=== PATIENT | female | born 1930 | race Caucasian/White ===

== ENCOUNTER 2017-01-09 14:55 | Inpatient (IN) | payer MEDICARE, BC ==
[2017-01-09] MEDS ORDERED: NS 0.9% 1000 ML* 1,000 ML IV ONE ×2 (15:04→15:38)
[2017-01-09] MEDS ORDERED: Ketorolac INJ* 30 MG/ML 1 ML VIAL IV ONE (15:38)
[2017-01-09] MEDS ORDERED: Ondansetron INJ* 2 MG/ML VIAL IV ONE (15:38)
[2017-01-09 15:44] LABS: Hematocrit 43 % (35-47); Hemoglobin 14.2 g/dl (12.0-16.0); Mean Corpuscular HGB Conc 33 g/dl (31-36); Mean Corpuscular Hemoglobin 32 pg (27-31); Mean Corpuscular Volume 97 fL (80-97); Mean Platelet Volume 9 um3 (7.4-10.4); Red Blood Count 4.43 10^6/ul (4.0-5.4); Red Cell Distribution Width 13 % (10.5-15); White Blood Count 12.4 10^3/ul (3.5-10.8)
[2017-01-09 16:07] LABS: Albumin 4.2 g/dL (3.2-5.2); BUN/Creatinine Ratio 21.6 (8-20); C Reactive Protein 7.4 mg/L (< 5.00); Calcium 9.5 mg/dL (8.6-10.3); EGFR African American 65.8 (>60); EGFR Non-African American 51.1 (>60); Globulin 3.1 g/dL (2-4); Total Bilirubin 0.6 mg/dL (0.2-1.0); Total Protein 7.3 g/dL (6.4-8.9)
[2017-01-09 16:11] LABS: Potassium 4.1 mmol/L (3.5-5.0)
[2017-01-09 17:17] LABS: Urine Bacteria Absent (Absent); Urine Bilirubin Negative (Negative); Urine Glucose Negative (Negative); Urine Nitrite Negative (Negative)
--- NOTE | 2017-01-09 17:30 | ED ---
Chato Osman Anna, scribed for Ariana Olivarez MD on 01/09/17 at 1552 . Abdominal Pain/Female - HPI Summary HPI Summary: Patient is a 86 y/o female coming to [facility] presenting with intermittent left abdominal pain radiating to her back that began two days ago at 1700. The pain is currently at severity 8/10. Denies emesis. The patient was seen by her PCP this afternoon, who took a CT and found the patient had a 7 mm kidney stone. She denies a history of kidney troubles. - History of Current Complaint Chief Complaint: EDFlankPain Stated Complaint: PAIN IN LT SIDE Time Seen by Provider: 01/09/17 15:18 Hx Obtained From: Patient Onset/Duration: Lasting Days, Still Present Timing: Days Severity Initially: Moderate Severity Currently: Moderate Pain Intensity: 8 Pain Scale Used: 0-10 Numeric Location: Discrete At: LLQ Radiates to: Flank Allergies/Adverse Reactions: Allergies Allergy/AdvReac Type Severity Reaction Status Date / Time Clopidogrel [From Plavix] Allergy Intermediate Hives Verified 01/09/17 14:57 Atorvastatin [From Lipitor] AdvReac Mild Abdominal Verified 01/09/17 14:57 Pain PMH/Surg Hx/FS Hx/Imm Hx Endocrine/Hematology History: Reports: Hx Diabetes - abnormal gfr Denies: Hx Systemic Lupus Erythematosus Cardiovascular History: Reports: Hx Angina, Hx Coronary Artery Disease, Hx Hypercholesterolemia, Hx Hypertension - ON MEDS Denies: Hx Congestive Heart Failure, Hx Pacemaker/ICD, Other Cardiovascular Problems/Disorders Respiratory History: Denies: Other Respiratory Problems/Disorders GI History: Denies: Other GI Disorders History: Denies: Hx Dialysis, Hx Renal Disease Musculoskeletal History: Reports: Other Musculoskeletal History - FRACTURE OF LEFT HUMERUS Denies: Hx Rheumatoid Arthritis Sensory History: Reports: Hx Contacts or Glasses Denies: Hx Hearing Aid Opthamlomology History: Reports: Hx Contacts or Glasses Psychiatric History: Reports: Hx Anxiety, Hx Depression - Cancer History Cancer Type, Location and Year: MELANOMA, METASTATIC Hx Chemotherapy: Yes - 10/02 Hx Radiation Therapy: No - Surgical History Surgery Procedure, Year, and Place[place] [facility] [place] [facility] [place] [facility] [place] and stent 08/2015. 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 Hx Anesthesia Reactions: No Infectious Disease History: No Infectious Disease History: Denies: Traveled Outside the [place] in Last 30 Days - Family History Known Family History: Negative: Cardiac Disease, Hypertension, Diabetes - Social History Occupation: Retired Lives: Alone Alcohol Use: Weekly Alcohol Amount: 1 glass of wine a week Hx Substance Use: No Substance Use Type: Reports: None Hx Tobacco Use: No Smoking Status (MU): Never Smoked Tobacco Review of Systems Positive: Abdominal Pain Positive: flank pain All Other Systems Reviewed And Are Negative: Yes Physical Exam Triage Information Reviewed: Yes Vital Signs On Initial Exam: Initial Vitals Temp Pulse Resp BP Pulse Ox 97.7 F 70 18 228/61 98 01/09/17 14:57 01/09/17 14:57 01/09/17 14:57 01/09/17 14:57 01/09/17 14:57 Vital Signs Reviewed: Yes Appearance: Positive: Well-Appearing, No Pain Distress Skin: Positive: Warm, Skin Color Reflects Adequate Perfusion, Dry Eyes: Positive: EOMI, JOSE ENT: Positive: Pharynx normal, TMs normal Neck: Positive: Supple, Nontender Respiratory/Lung Sounds: Positive: Clear to Auscultation, Breath Sounds Present. Negative: Rales, Rhonchi, Wheezes Cardiovascular: Positive: RRR. Negative: Murmur, Rub, Other - gallops Abdomen Description: Positive: Nontender, Soft. Negative: Distended, Guarding, Other: - rebound Bowel Sounds: Positive: Present Musculoskeletal: Positive: Strength/ROM Intact. Negative: Edema Left, Edema Right Neurological: Positive: Normal, Sensory/Motor Intact, Alert, Oriented to Person Place, Time, CN Intact II-III Psychiatric: Positive: Affect/Mood Appropriate - [place]arton Coma Scale Coma Scale Total: 15 Diagnostics - Vital Signs Vital Signs Temp Pulse Resp BP Pulse Ox 01/09/17 14:57 97.7 F 70 18 228/61 98 - Laboratory Lab Results: Lab Results 01/09/17 01/09/17 01/09/17 Range/Units 15:30 15:30 15:30 WBC 12.4 H (3.5-10.8) 10^3/ul RBC 4.43 (4.0-5.4) 10^6/ul Hgb 14.2 (12.0-16.0) g/dl Hct 43 (35-47) % MCV 97 (80-97) fL MCH 32 H (27-31) pg MCHC 33 (31-36) g/dl RDW 13 (10.5-15) % Plt Count 145 L (150-450) 10^3/ul MPV 9 (7.4-10.4) um3 Neut % (Auto) 79.3 (38-83) % Lymph % (Auto) 14.5 L (25-47) % [place] % (Auto) 5.0 (1-9) % Eos % (Auto) 0.7 (0-6) % Baso % (Auto) 0.5 (0-2) % Absolute Neuts (auto) 9.9 H (1.5-7.7) 10^3/ul Absolute Lymphs (auto) 1.8 (1.0-4.8) 10^3/ul Absolute Monos (auto) 0.6 (0-0.8) 10^3/ul Absolute Eos (auto) 0.1 (0-0.6) 10^3/ul Absolute Basos (auto) 0.1 (0-0.2) 10^3/ul Absolute Nucleated RBC 0.01 10^3/ul Nucleated RBC % 0.1 Sodium 139 (133-145) mmol/L Potassium 4.1 (3.5-5.0) mmol/L Chloride 107 (101-111) mmol/L Carbon Dioxide 25 (22-32) mmol/L Anion Gap 7 (2-11) mmol/L BUN 22 (6-24) mg/dL Creatinine 1.02 H (0.51-0.95) mg/dL Est GFR ( Amer) 65.8 (>60) Est GFR (Non-Af Amer) 51.1 (>60) BUN/Creatinine Ratio 21.6 H (8-20) Glucose 93 (70-100) mg/dL Lactic Acid 1.1 (0.5-2.0) mmol/L Calcium 9.5 (8.6-10.3) mg/dL Total Bilirubin 0.60 (0.2-1.0) mg/dL AST 14 (13-39) U/L ALT 9 (7-52) U/L Alkaline Phosphatase 73 (34-104) U/L C-Reactive Protein 7.40 H (< 5.00) mg/L Total Protein 7.3 (6.4-8.9) g/dL Albumin 4.2 (3.2-5.2) g/dL Globulin 3.1 (2-4) g/dL Albumin/Globulin Ratio 1.4 (1-3) Lipase 20 (11.0-82.0) U/L Urine Color Urine Appearance Urine pH (5-9) Ur Specific [place] (1.010-1.030) Urine Protein (Negative) Urine Ketones (Negative) Urine Blood (Negative) Urine Nitrate (Negative) Urine Bilirubin (Negative) Urine Urobilinogen (Negative) Ur Leukocyte Esterase (Negative) Urine WBC (Auto) (Absent) Urine RBC (Auto) (Absent) Ur Squamous Epith Cells (Absent) Urine Bacteria (Absent) Urine Glucose (Negative) 01/09/17 Range/Units 17:00 WBC (3.5-10.8) 10^3/ul RBC (4.0-5.4) 10^6/ul Hgb (12.0-16.0) g/dl Hct (35-47) % MCV (80-97) fL MCH (27-31) pg MCHC (31-36) g/dl RDW (10.5-15) % Plt Count (150-450) 10^3/ul MPV (7.4-10.4) um3 Neut % (Auto) (38-83) % Lymph % (Auto) (25-47) % [place] % (Auto) (1-9) % Eos % (Auto) (0-6) % Baso % (Auto) (0-2) % Absolute Neuts (auto) (1.5-7.7) 10^3/ul Absolute Lymphs (auto) (1.0-4.8) 10^3/ul Absolute Monos (auto) (0-0.8) 10^3/ul Absolute Eos (auto) (0-0.6) 10^3/ul Absolute Basos (auto) (0-0.2) 10^3/ul Absolute Nucleated RBC 10^3/ul Nucleated RBC % Sodium (133-145) mmol/L Potassium (3.5-5.0) mmol/L Chloride (101-111) mmol/L Carbon Dioxide (22-32) mmol/L Anion Gap (2-11) mmol/L BUN (6-24) mg/dL Creatinine (0.51-0.95) mg/dL Est GFR ( Amer) (>60) Est GFR (Non-Af Amer) (>60) BUN/Creatinine Ratio (8-20) Glucose (70-100) mg/dL Lactic Acid (0.5-2.0) mmol/L Calcium (8.6-10.3) mg/dL Total Bilirubin (0.2-1.0) mg/dL AST (13-39) U/L ALT (7-52) U/L Alkaline Phosphatase (34-104) U/L C-Reactive Protein (< 5.00) mg/L Total Protein (6.4-8.9) g/dL Albumin (3.2-5.2) g/dL Globulin (2-4) g/dL Albumin/Globulin Ratio (1-3) Lipase (11.0-82.0) U/L Urine Color Straw Urine Appearance Clear Urine pH 5.0 (5-9) Ur Specific [place] 1.009 L (1.010-1.030) Urine Protein Negative (Negative) Urine Ketones Trace H (Negative) Urine Blood 2+ H (Negative) Urine Nitrate Negative (Negative) Urine Bilirubin Negative (Negative) Urine Urobilinogen Negative (Negative) Ur Leukocyte Esterase Negative (Negative) Urine WBC (Auto) Absent (Absent) Urine RBC (Auto) Trace(0-2/hpf) (Absent) Ur Squamous Epith Cells Present H (Absent) Urine Bacteria Absent (Absent) Urine Glucose Negative (Negative) Result Diagrams: 01/09/17 15:30 01/09/17 15:30 Lab Statement: Any lab studies that have been ordered have been reviewed, and results considered in the medical decision making process. - EKG 1611 Cardiac Rate: NL - 65 bpm EKG Rhythm: Sinus Rhythm ST Segment: Normal Ectopy: None Abdominal Pain Fem Course/Dx - Course Course Of Treatment: 86 yo female hx of melanoma with mets to lymph nodes here with flank pain with 7mm stone at left uvj. Pain is resolved with toradol, admission to hospitalist (discussed with Charmaine) with consultation with Vinicio - Diagnoses Provider Diagnoses: Kidney stone on left side - Provider Notifications Discussed Care Of Patient With: Dr. Mooney (urology) at 1558. Patient should give urine for UA and then will be admitted under Dr. Mooney's care. Dr. Hall ( hospitalist) at 1727. Accepts admission. Discharge - Discharge Plan Condition: Stable Disposition: ADMITTED TO [facility] Referrals: Onesimo Ramírez MD [Primary Care Provider] - The documentation as recorded by the Chato cherry Anna accurately reflects the service I personally performed and the decisions made by me, Ariana Olivarez MD.
[2017-01-09] MEDS ORDERED: Ondansetron INJ* 2 MG/ML VIAL IV PRN (18:06)
[2017-01-09] MEDS ORDERED: Acetaminophen TAB* 325 MG PO PRN (18:06)
[2017-01-09] MEDS ORDERED: Morphine INJ* 2 MG/ML 1 ML CARPUJECT IV PRN (18:06)
[2017-01-09] MEDS ORDERED: NS 0.9% 1000 ML* 1,000 ML IV SCH (18:15)
[2017-01-09] MEDS ORDERED: cefTRIAXone VIAL(*) 1,000 MG in NS 0.9% 50 ML* 50 ML IVPB SCH (18:30)
[2017-01-09] MEDS: Heparin VIAL(*) 5000 UNITS/ML VIAL (FIVE THOUSAND) SUBCUT SCH (22:25)
--- NOTE | 2017-01-09 23:16 | HP ---
HISTORY AND PHYSICAL: DATE OF ADMISSION: 01/09/17 PRIMARY CARE PROVIDER: Dr. Ramírez. CONSULTING UROLOGIST: Dr. Mooney. ATTENDING PHYSICIAN WHILE IN THE HOSPITAL: Dr. Gregory Elder *(report being dictated by Enrique Bañuelos NP). CHIEF COMPLAINT: Left-sided flank pain. HISTORY OF PRESENT ILLNESS: Ms. Ye is an 86-year-old female patient. She has a history of coronary artery disease, hypertension, atrial fibrillation, melanoma, history of a left shoulder fracture and hyperlipidemia. She comes into the ER today stating that on Thursday, she noticed that she had left- sided flank and abdominal pain, sudden onset, that got better with a heating pad. She said that she did not seek care at that point because it had gotten better. She felt pretty good on . She had no associated nausea or vomiting. Unfortunately, today, around 2 in the morning, she had a recurrence of pain, it went away again with the heating pad, but then at 11, pain came back again, left side. She describes as a sharp stabbing pain, sudden in onset , no association with nausea, no urinary symptoms associated with it but the pain kept coming back, so she decided to touch base with her primary. She actually pressed her Life Alert button at [facility] and she went to [facility] and they ultimately ordered an outpatient CT scan, which showed a left-sided kidney stone. So she was referred to the hospital. She denies having any fever. She admitted to having some chills today. No chest pain or shortness of breath. She says she does about 40 minutes of aerobic exercises in the water 3 times a week. She does not get chest pain with this and she says she can walk up a flight of stairs without having any chest discomfort. She denies having recent fevers, cough, or any recent shortness of breath, orthopnea or weight gain but because of the nephrolithiasis, we were asked to evaluate to admit the patient. PAST MEDICAL HISTORY: Significant for: 1. Coronary artery disease. 2. Hypertension. 3. Atrial fibrillation. 4. Melanoma. 5. Left shoulder fracture. 6. She also has a history of hyperlipidemia. PAST SURGICAL HISTORY: She has had a right groin mass removed that was melanoma. In addition to this, she has had melanoma removed from the right axilla. She has had a hysterectomy, tonsillectomy, , and she has had a cardiac catheterization with one stent placement. HOME MEDICATIONS: According to the list that we were able to obtain include: 1. Nitroglycerin 0.4 mg sublingual q.5 minutes p.r.n. chest pain x3. 2. Metoprolol XL 25 mg p.o. daily. 3. Lisinopril 5 mg a day. 4. [place]ford 1 to 3 tablets b.i.d. as needed. 5. Cardizem 120 mg daily. 6. Artificial Tears 2 drops both eyes every 4 hours as needed. 7. Amiodarone 100 mg daily. 8. Tylenol 650 mg p.o. every 6 hours as needed. ALLERGIES TO MEDICATIONS: Include PLAVIX and LIPITOR. FAMILY HISTORY: Mother had hypertension and both her mother and father in their 90s. SOCIAL HISTORY: She does not smoke. She rarely drinks alcohol. Surrogate decision maker is her son. She is recently . She lives at [facility]. REVIEW OF SYSTEMS: There is no documented fever. She denied any significant weight change. There was no double vision. She denies having any ear discharge. There was no rhinorrhea, no sore throat. No thyroid enlargement. She denied having any chest pain. No orthopnea, no nocturnal dyspnea. There was no dysuria, no frequency, no seizure, no loss of consciousness, no pruritus , and no skin ulcerations. Review of 14 systems completed. All others were negative. PHYSICAL EXAMINATION GENERAL: Ms. Ye is an 86-year-old female patient. She is sitting in the ER stretcher. She does not appear to be in any acute distress. VITAL SIGNS: Blood pressure 161/46, pulse is 58, respirations 18, O2 sat 93%, temperature 97.7. HEENT: Head is atraumatic and normocephalic. Eyes: EOMs intact. Sclerae intact, not pale. Throat: Oral mucosa appears to be moist. No oropharyngeal erythema. NECK: Supple. LUNGS: Clear to auscultation. No wheezes, rales or rhonchi. HEART: Sounds S1, S2. Regular rate and rhythm. No murmurs, rubs or gallops. ABDOMEN: Soft, it was flat, nontender. Bowel sounds present. EXTREMITIES: Pulses were 2+ throughout. Able to move all 4 extremities with 5/ 5 strength. NEUROLOGIC: The patient is awake, alert, and oriented x3. No gross focal deficits. SKIN: Intact. DIAGNOSTIC STUDIES/LAB DATA: Labs today revealed WBC of 12.4, RBC of 4.43, hemoglobin 14.2, hematocrit 43, and platelet count 145. Sodium was 139, potassium 4.1, chloride 107, bicarb 25, BUN 22, creatinine 1.02, her baseline is right around 0.9. The glucose was 93, lactic 1.1, calcium 9.5, total bili 0.6, AST 14, ALT 9, alk phos 73, albumin 4.2, lipase 20. Urine showed trace ketones, 2+ blood, present squamous epithelial cells. There was an EKG obtain today as well, which revealed normal sinus rhythm with the rate of 65. She had no ST elevation. She had T-wave inversions, appears to be similar to previous EKGs. T-waves are biphasic in V4 and flat in V5 and V6. Old medical records were reviewed. ASSESSMENT AND PLAN: Ms. Ye is an 86-year-old female patient coming into the ER today with complaints of right-sided flank pain. On evaluation, she was ultimately found to have a left-sided nephrolithiasis with left-sided hydronephrosis. Hospitalist service was asked to evaluate for admission. She will be admitted under observation status for: 1. Left-sided hydronephrosis with nephrolithiasis. At this point, Dr. Mooney has evaluated the patient. The plan will be to take her to the OR tomorrow if she does not pass the stone. We will go ahead and hydrate her with normal saline at 100 an hour overnight. She had an echo in February of last year with the EF of 60% to 65%. So, we will hydrate her at 100 cc an hour. We will go ahead and give her Rocephin. In addition to this, we will strain her urine. We will repeat the ultrasound in the morning to see if she has passed the stone. If not , then the plan will be to proceed to the OR with Dr. Mooney. In terms of cardiac risk factors, she is at moderate risk because of the history of coronary artery disease, but I think she is medically optimized. She is able to exceed 4 METS and did not have any chest pain. So again, I do not think there is any further optimization needed. 2. Coronary artery disease. I would recommend continuing her current medical regimen. She is on a beta-ac, which we will continue. 3. Hypertension. Continue meds as prescribed with the exception of lisinopril. We can restart that in the postoperative setting. 4. Atrial fibrillation. She is in sinus rhythm. We will continue her meds as prescribed. 5. Melanoma. Follow up her primary. 6. Hyperlipidemia. Follow with her primary. 7. DVT prophylaxis. She is high risk. She will be placed on heparin subcu. 8. Code status. She wishes to be a DNR. 9. Fluid, electrolytes, and nutrition. She can have a heart healthy diet and she will be n.p.o. after midnight. TIME SPENT: Time spent on the admission was approximately 60 minutes, greater than half the time was spent [id number] with the patient obtaining my history of physical; the other half time was spent going over the plan of care with the patient and implementing the plan of care. I did discuss the plan of care with my attending Dr. Elder; he is in agreement. ENRIQUE BAÑUELOS NP CC: Dr. Mooney; Dr. Ramírez* [id number]/[facility] #: [id number] MTDD
[2017-01-10] MEDS: Heparin VIAL(*) 5000 UNITS/ML VIAL (FIVE THOUSAND) SUBCUT SCH ×3 (05:12→22:08)
[2017-01-10 05:39] LABS: Hematocrit 36 % (35-47); Hemoglobin 11.9 g/dl (12.0-16.0); Mean Corpuscular HGB Conc 33 g/dl (31-36); Mean Corpuscular Hemoglobin 32 pg (27-31); Mean Corpuscular Volume 98 fL (80-97); Mean Platelet Volume 9 um3 (7.4-10.4); Red Cell Distribution Width 13 % (10.5-15); White Blood Count 7.3 10^3/ul (3.5-10.8)
[2017-01-10 05:54] LABS: BUN/Creatinine Ratio 17.7 (8-20); Calcium 8.2 mg/dL (8.6-10.3); EGFR African American 52.5 (>60); EGFR Non-African American 40.8 (>60)
[2017-01-10] MEDS: Metoprolol Succinate XL TAB* 25 MG PO SCH (08:37)
[2017-01-10] MEDS ORDERED: Diltiazem CD CAP* 120 MG PO SCH (09:00)
--- NOTE | 2017-01-10 09:38 | RAD ---
INDICATION: Evaluate kidneys in a patient with a left ureterovesical junction stone identified on CT examination the previous day. COMPARISON: CT abdomen pelvis dated January 09, 2017 that depicted a 6 mm left ureterovesical junction stone. TECHNIQUE: Real-time ultrasound examination of the bilateral kidneys and urinary bladder including grayscale and Doppler color flow analysis. FINDINGS: The right kidney is normal in size and echogenicity. There are no hypervascular renal masses. There are no renal calculi or hydronephrosis identified. The left kidney exhibits mild to moderate hydronephrosis. A shadowing echogenic stone is seen at the left ureterovesical junction. Only a right ureteral jet is recorded. IMPRESSION: Consistent with the prior CT there is mild to moderate hydronephrosis, loss of left ureteral jet in the presence of a \R\1cm left ureterovesical stone.
[2017-01-10] MEDS ORDERED: Diazepam TAB(*) 2 MG PO ONE (11:34)
[2017-01-10] MEDS ORDERED: Gentamicin ADULT (*) 160 MG in NS 0.9% 100 ML* 100 ML IVPB ONE (12:00)
[2017-01-10] MEDS ORDERED: Ondansetron INJ* 2 MG/ML VIAL ONE (12:24)
[2017-01-10] MEDS ORDERED: KETAMINE HCL* 50 MG/ML 10 ML VIAL ONE (12:29)
[2017-01-10] MEDS ORDERED: fentaNYL* 50 MCG/ML 2 ML VIAL (100 MCG VIAL) ONE (12:29)
[2017-01-10] MEDS ORDERED: Lidocaine 2% PF * 5 ML VIAL ONE (12:30)
[2017-01-10] MEDS ORDERED: Ketorolac INJ* 30 MG/ML 1 ML VIAL ONE (12:30)
[2017-01-10] MEDS ORDERED: Propofol* 10 MG/ML 20 ML BTL IV PUSH ONE (12:30)
[2017-01-10] MEDS ORDERED: Dexamethasone IV* 4 MG/ML 1 ML (4 MG) ONE (12:30)
[2017-01-10] MEDS ORDERED: Iohexol 180 (CONTRAST) 10 ML SDV IV ONE (13:09)
[2017-01-10] MEDS ORDERED: HYDROmorphone INJ* 1 MG/ML CARPUJECT SYRINGE IV PRN (13:58)
[2017-01-10] MEDS ORDERED: Acetaminophen TAB* 325 MG PO PRN (13:58)
[2017-01-10] MEDS ORDERED: DiMENhydriNATE IV* 50 MG/ML VIAL IV PUSH PRN (13:58)
[2017-01-10] MEDS ORDERED: oxyCODONE/Acetamin 5/325 MG* TAB PO PRN (14:35)
--- NOTE | 2017-01-10 14:51 | RAD ---
CPT II Codes: 6045F INDICATION: Obstructive left renal stone TECHNIQUE: Intraoperative fluoroscopy was provided during retrograde ureterostomy and stent placement FINDINGS: 4 spot films depict retrograde contrast injection, wire cannulation and placement of an anatomically aligned ureteral stent. Fluoroscopy time: 15 seconds IMPRESSION: As above.
[2017-01-10] MEDS ORDERED: CMC:Solifenacin(NF) 10 MG TAB PO ONE (15:00)
[2017-01-10] MEDS ORDERED: Solifenacin(NF) 5 MG TAB PO ONE (16:00)
--- NOTE | 2017-01-10 16:54 | PN ---
Subjective Date of Service: 01/10/17 Interval History: Seen before and after procedure Pain well controlled No complaints Objective Active Medications: Acetaminophen (Tylenol Tab*) 650 mg PO Q4H PRN PRN Reason: FEVER/PAIN Amiodarone HCl (Cordarone Tab*) 100 mg PO QPM [facility] Diltiazem HCl (Cardizem Cd Cap*) 120 mg PO EVERY OTHER DAY [facility] Heparin Sodium (Porcine) (Heparin Vial(*)) 5,000 units SUBCUT Q8HR [facility] Last Admin: 01/10/17 15:52 Dose: Not Given Lactated Ringer's (Lactated Ringers 1000 Ml Bag*) 1,000 mls @ 125 mls/hr IV .PER RATE [facility] Last Admin: 01/10/17 16:18 Dose: 125 mls/hr Lisinopril (Prinivil Tab*) 10 mg PO BEDTIME [facility] Metoprolol Succinate (Toprol Xl Tab*) 25 mg PO DAILY [facility] Last Admin: 01/10/17 08:37 Dose: 25 mg Morphine Sulfate (Morphine Inj (Syringe)*) 2 mg IV Q4H PRN PRN Reason: PAIN - MILD Ondansetron HCl (Zofran Inj*) 4 mg IV Q6H PRN PRN Reason: NAUSEA Oxycodone/Acetaminophen (Percocet 5/325 Tab*) 1 tab PO Q4H PRN PRN Reason: PAIN Vital Signs 01/09/17 01/09/17 01/09/17 17:30 18:22 19:00 Temperature 97.7 F 97.8 F Pulse Rate 58 58 68 Respiratory 18 18 16 Rate Blood Pressure 161/46 161/46 178/47 (mmHg) O2 Sat by Pulse 93 94 Oximetry 01/09/17 01/09/17 01/10/17 20:33 23:38 03:51 Temperature 97.9 F 97.8 F 98.0 F Pulse Rate 58 65 68 Respiratory 20 18 18 Rate Blood Pressure 137/66 171/49 (mmHg) O2 Sat by Pulse 96 93 94 Oximetry 01/10/17 01/10/17 01/10/17 07:49 08:00 09:33 Temperature 97.5 F Pulse Rate 74 Respiratory 18 Rate Blood Pressure 203/62 (mmHg) O2 Sat by Pulse 95 96 Oximetry 01/10/17 01/10/17 01/10/17 11:05 11:56 13:55 Temperature 98.4 F Pulse Rate 73 63 Respiratory 16 14 Rate Blood Pressure 206/61 193/55 (mmHg) O2 Sat by Pulse 99 Oximetry 01/10/17 01/10/17 01/10/17 14:00 14:05 14:10 Temperature Pulse Rate 63 63 62 Respiratory 14 16 16 Rate Blood Pressure 188/66 198/56 192/53 (mmHg) O2 Sat by Pulse 98 97 97 Oximetry 01/10/17 01/10/17 01/10/17 14:15 14:30 14:45 Temperature Pulse Rate 62 61 63 Respiratory 14 16 16 Rate Blood Pressure 196/66 203/59 203/74 (mmHg) O2 Sat by Pulse 97 97 97 Oximetry 01/10/17 01/10/17 01/10/17 15:00 15:50 16:34 Temperature 97.8 F Pulse Rate 69 65 Respiratory 16 18 Rate Blood Pressure 195/65 203/51 (mmHg) O2 Sat by Pulse 96 99 94 Oximetry Oxygen Devices in Use Now: None Appearance: NAD Eyes: No Scleral Icterus, PERRLA Ears/Nose/Mouth/Throat: Mucous Membranes Moist Neck: NL Appearance and Movements; NL JVP Respiratory: Symmetrical Chest Expansion and Respiratory Effort, Clear to Auscultation Cardiovascular: - - IRIR, soft DEJA Abdominal: NL Sounds; No Tenderness; No Distention, No Hepatosplenomegaly Extremities: - - trace LE edema Neurological: Alert and Oriented x 3 Result Diagrams: 01/10/17 05:30 01/10/17 05:30 Additional Lab and Data: Lab Results 01/09/17 01/09/17 01/09/17 Range/Units 15:30 15:30 15:30 WBC 12.4 H (3.5-10.8) 10^3/ul RBC 4.43 (4.0-5.4) 10^6/ul Hgb 14.2 (12.0-16.0) g/dl Hct 43 (35-47) % MCV 97 (80-97) fL MCH 32 H (27-31) pg MCHC 33 (31-36) g/dl RDW 13 (10.5-15) % Plt Count 145 L (150-450) 10^3/ul MPV 9 (7.4-10.4) um3 Neut % (Auto) 79.3 (38-83) % Lymph % (Auto) 14.5 L (25-47) % [place] % (Auto) 5.0 (1-9) % Eos % (Auto) 0.7 (0-6) % Baso % (Auto) 0.5 (0-2) % Absolute Neuts (auto) 9.9 H (1.5-7.7) 10^3/ul Absolute Lymphs (auto) 1.8 (1.0-4.8) 10^3/ul Absolute Monos (auto) 0.6 (0-0.8) 10^3/ul Absolute Eos (auto) 0.1 (0-0.6) 10^3/ul Absolute Basos (auto) 0.1 (0-0.2) 10^3/ul Absolute Nucleated RBC 0.01 10^3/ul Nucleated RBC % 0.1 Sodium 139 (133-145) mmol/L Potassium 4.1 (3.5-5.0) mmol/L Chloride 107 (101-111) mmol/L Carbon Dioxide 25 (22-32) mmol/L Anion Gap 7 (2-11) mmol/L BUN 22 (6-24) mg/dL Creatinine 1.02 H (0.51-0.95) mg/dL Est GFR ( Amer) 65.8 (>60) Est GFR (Non-Af Amer) 51.1 (>60) BUN/Creatinine Ratio 21.6 H (8-20) Glucose 93 (70-100) mg/dL Lactic Acid 1.1 (0.5-2.0) mmol/L Calcium 9.5 (8.6-10.3) mg/dL Total Bilirubin 0.60 (0.2-1.0) mg/dL AST 14 (13-39) U/L ALT 9 (7-52) U/L Alkaline Phosphatase 73 (34-104) U/L C-Reactive Protein 7.40 H (< 5.00) mg/L Total Protein 7.3 (6.4-8.9) g/dL Albumin 4.2 (3.2-5.2) g/dL Globulin 3.1 (2-4) g/dL Albumin/Globulin Ratio 1.4 (1-3) Lipase 20 (11.0-82.0) U/L Urine Color Urine Appearance Urine pH (5-9) Ur Specific [place] (1.010-1.030) Urine Protein (Negative) Urine Ketones (Negative) Urine Blood (Negative) Urine Nitrate (Negative) Urine Bilirubin (Negative) Urine Urobilinogen (Negative) Ur Leukocyte Esterase (Negative) Urine WBC (Auto) (Absent) Urine RBC (Auto) (Absent) Ur Squamous Epith Cells (Absent) Urine Bacteria (Absent) Urine Glucose (Negative) 01/09/17 Range/Units 17:00 WBC (3.5-10.8) 10^3/ul RBC (4.0-5.4) 10^6/ul Hgb (12.0-16.0) g/dl Hct (35-47) % MCV (80-97) fL MCH (27-31) pg MCHC (31-36) g/dl RDW (10.5-15) % Plt Count (150-450) 10^3/ul MPV (7.4-10.4) um3 Neut % (Auto) (38-83) % Lymph % (Auto) (25-47) % [place] % (Auto) (1-9) % Eos % (Auto) (0-6) % Baso % (Auto) (0-2) % Absolute Neuts (auto) (1.5-7.7) 10^3/ul Absolute Lymphs (auto) (1.0-4.8) 10^3/ul Absolute Monos (auto) (0-0.8) 10^3/ul Absolute Eos (auto) (0-0.6) 10^3/ul Absolute Basos (auto) (0-0.2) 10^3/ul Absolute Nucleated RBC 10^3/ul Nucleated RBC % Sodium (133-145) mmol/L Potassium (3.5-5.0) mmol/L Chloride (101-111) mmol/L Carbon Dioxide (22-32) mmol/L Anion Gap (2-11) mmol/L BUN (6-24) mg/dL Creatinine (0.51-0.95) mg/dL Est GFR ( Amer) (>60) Est GFR (Non-Af Amer) (>60) BUN/Creatinine Ratio (8-20) Glucose (70-100) mg/dL Lactic Acid (0.5-2.0) mmol/L Calcium (8.6-10.3) mg/dL Total Bilirubin (0.2-1.0) mg/dL AST (13-39) U/L ALT (7-52) U/L Alkaline Phosphatase (34-104) U/L C-Reactive Protein (< 5.00) mg/L Total Protein (6.4-8.9) g/dL Albumin (3.2-5.2) g/dL Globulin (2-4) g/dL Albumin/Globulin Ratio (1-3) Lipase (11.0-82.0) U/L Urine Color Straw Urine Appearance Clear Urine pH 5.0 (5-9) Ur Specific [place] 1.009 L (1.010-1.030) Urine Protein Negative (Negative) Urine Ketones Trace H (Negative) Urine Blood 2+ H (Negative) Urine Nitrate Negative (Negative) Urine Bilirubin Negative (Negative) Urine Urobilinogen Negative (Negative) Ur Leukocyte Esterase Negative (Negative) Urine WBC (Auto) Absent (Absent) Urine RBC (Auto) Trace(0-2/hpf) (Absent) Ur Squamous Epith Cells Present H (Absent) Urine Bacteria Absent (Absent) Urine Glucose Negative (Negative) Assess/Plan/Problems-Billing Assessment: 86 yo F a/w obstructing nephrolithiasis s/p OR with Dr. Mooney, removal and stent placement - Patient Problems (1) Nephrolithiasis Comment: c/b left hydro s/p stent placement d/c abx f/u uro in 10 days for stent removal (2) Hypertension Comment: With wide pulse pressure. Has been a problem as outpatient. Recently started on cardizem QOD by Dr. Farmer on 5mg lisinopril give 10mg this evening limit crystalloids (3) Atrial fibrillation with RVR Comment: amiodarone 100mg cardizem has refused AC (4) Acute kidney injury Comment: repeat BMP (5) DVT prophylaxis Comment: HSQ Status and Disposition: remain hospitalized in setting of uncontrolled HTN
--- NOTE | 2017-01-10 17:15 | OP ---
DATE OF OPERATION: 01/10/17 - ROOM #411 DATE OF : [birth year] SURGEON: Oscar Mooney MD ANESTHESIOLOGIST: Dr. Benoit. ANESTHESIA: General. PRE-OP DIAGNOSES: 1. Left hydronephrosis. 2. Calculus, left distal ureter. POST-OP DIAGNOSES: 1. Left hydronephrosis. 2. Calculus, left distal ureter. OPERATIVE PROCEDURE: Cystoscopy, left retrograde pyelogram, left ureteroscopy, left pyeloscopy, laser lithotripsy of left ureteral calculus and removal of calculus fragments and left stent insertion. COMPLICATIONS: None. STENT USED: A 7-Italian stent, left ureter. INDICATIONS: Marry Ye is an 86-year-old lady who was evaluated on 01/09/17 in the emergency room for left flank pain secondary to ureteral calculus. She was admitted and ultrasound was done earlier this morning, which revealed evidence of complete obstruction of the left ureter. FINDINGS: Fairly large 10-12 mm calculus impacted at left ureterovesical junction with hydronephrosis and hydroureter. POSTOPERATIVE CONDITION: Stable. DESCRIPTION OF PROCEDURE: After induction of general anesthesia, the patient was placed in dorsal lithotomy position, sequential compression devices were in place and functioning. Initial cystoscopy revealed significant edema surrounding the left orifice with an otherwise normal-appearing bladder. A guidewire was introduced into the left ureter. After some initial maneuvering, the wire was advanced proximally. Retrograde pyelogram revealed moderate-to- severe left hydronephrosis with a significantly dilated tortuous left ureter. The 6-Italian ureteroscope was introduced and advanced under direct vision. Initially, I did not visualize the calculus and the ureteroscope was advanced all the way up into the proximal ureter and then into the kidney. Pyeloscopy was performed which revealed a dilated intrarenal collecting system. The ureteroscope was then carefully withdrawn and the calculus turned out to be impacted right at the ureterovesical junction almost digging into the wall of the ureter at that point. Using a 550 micron holmium laser, the calculus was successfully fragmented into multiple pieces, all of which were retrieved. The appearance was suspicious for a uric acid calculus. Once all the pieces had been removed, a 7-Italian stent was introduced and positioned under fluoroscopy with good proximal and distal positioning obtained. The patient tolerated the procedure satisfactorily and was transferred back to the recovery area in stable condition. CC: Dr. Ramírez* [id number]/[facility] #: [id number] MAKENZIE
[2017-01-10] MEDS ORDERED: Amiodarone TAB* 200 MG PO SCH (18:00)
[2017-01-10] MEDS ORDERED: Lisinopril TAB* 10 MG PO SCH (21:00)
[2017-01-11] MEDS: Heparin VIAL(*) 5000 UNITS/ML VIAL (FIVE THOUSAND) SUBCUT SCH ×2 (07:10→12:58)
[2017-01-11 07:36] LABS: Hematocrit 37 % (35-47); Hemoglobin 12.4 g/dl (12.0-16.0); Mean Corpuscular HGB Conc 33 g/dl (31-36); Mean Corpuscular Hemoglobin 32 pg (27-31); Mean Corpuscular Volume 97 fL (80-97); Mean Platelet Volume 9 um3 (7.4-10.4); Red Blood Count 3.83 10^6/ul (4.0-5.4); Red Cell Distribution Width 13 % (10.5-15); White Blood Count 8.6 10^3/ul (3.5-10.8)
[2017-01-11 07:52] LABS: BUN/Creatinine Ratio 21.3 (8-20); Calcium 8.7 mg/dL (8.6-10.3); EGFR African American 72.3 (>60); EGFR Non-African American 56.2 (>60); Potassium 4.2 mmol/L (3.5-5.0)
[2017-01-11] MEDS: Metoprolol Succinate XL TAB* 25 MG PO SCH (08:01)
[2017-01-11 09:59] VITALS: BP 147/47
--- NOTE | 2017-01-12 02:49 | DS ---
DISCHARGE SUMMARY: DATE OF ADMISSION: 01/09/17 DATE OF DISCHARGE: 01/11/17 PRIMARY CARE PROVIDER: Dr. Ramírez. NETWORK SYSTEMS INTEGRATOR: Dr. Farmer. PRIMARY DIAGNOSIS: Left-sided nephrolithiasis with hydronephrosis. SECONDARY DIAGNOSES: Include: 1. Hypertension with wide pulse pressure. 2. Atrial fibrillation. 3. Coronary artery disease. 4. Acute kidney injury, now resolved. PROCEDURES PERFORMED DURING HOSPITAL STAY: 1. Cystoscopy with left retrograde pyelogram. 2. Left ureteroscopy with lithotripsy of left calculus and left stent insertion performed by Dr. Mooney, 01/10/17. HISTORY OF PRESENT ILLNESS AND HOSPITAL COURSE: This is an 86-year-old female, past medical history as outlined in history of present illness on day of admission, presented to the hospital with left flank and abdominal pain, found with obstructing left-sided nephrolithiasis. She was admitted to the hospitalist service, had a repeat ultrasound the day following admission, which indicated complete obstruction with continued pain, underwent aforementioned procedure with placement of left stent. She tolerated the procedure well. However, both pre procedure and post procedure, she had uncontrolled blood pressure, systolic greater than 200 with diastolics in the 60s indicating a wide pulse pressure. I reviewed her outpatient records from Dr. Farmer indicating this is a long-standing problem that has been difficult to control. She was placed back on her home medication regimen on the following day. Blood pressure was better controlled. She was not discharged on antibiotics. Urine culture remained negative. MEDICATIONS ON DISCHARGE: 1. Acetaminophen 650 mg every 6 hours as needed for pain or fever. 2. Nitroglycerin 0.4 mg sublingual every 5 minutes up to 3 times as needed for chest pain. 3. Metoprolol succinate 25 mg daily. 4. Artificial Tears 2 drops both eyes every 4 hours as needed for dry eyes. 5. [place]field 5/325 one to two tabs twice daily as needed for pain. 6. Amiodarone 100 mg at bedtime. 7. Lisinopril 5 mg at bedtime. 8. Diltiazem CD 120 mg every other day in the morning. PERTINENT LABORATORY DATA: Creatinine peaked at 1.24, 0.94 on discharge. Reasons to return to the hospital including but not limited to recurrent or worsening symptoms including recurrent flank or abdominal pain, blood in her urine, fevers, chills, night sweats, chest pain, shortness of breath, nausea, vomiting, lightheadedness, inability to obtain or tolerate medications discussed with the patient discussed with the patient. She acknowledged understanding. TIME SPENT: Greater than 45 minutes were spent on discharge of this patient with greater than half the time spent [id number] with the patient. CC: Dr. Ramírez; Dr. Farmer* [id number]/[facility] #: [id number] [facility]
[2017-01-12] MEDS ORDERED: Diltiazem CD CAP* 120 MG PO SCH (09:00)
== END 2017-01-11 14:18 | disposition home or self-care (01) | DRG 669 ==
LOC: ED 14:55 → MED 17:26 → OBSVTOIN 01-10 16:48
PROVIDERS: ADMIT Internal Medicine; ATTEND Internal Medicine
PROC: BT1FZZZ Fluoroscopy of Left Kidney, Ureter and Bladder (ICD-10-PCS; 2017-01-10)
PROC: 0T778DZ Dilation of Left Ureter with Intraluminal Device, Via Natural or Artificial Opening Endoscopic (ICD-10-PCS; 2017-01-10)
PROC: 0TC78ZZ Extirpation of Matter from Left Ureter, Via Natural or Artificial Opening Endoscopic (ICD-10-PCS; principal; 2017-01-10 15:00)
DX: N13.2 Hydronephrosis with renal and ureteral calculous obstruction (principal); N17.9 Acute kidney failure, unspecified; I48.91 Unspecified atrial fibrillation; C43.9 Malignant melanoma of skin, unspecified; I25.10 Atherosclerotic heart disease of native coronary artery without angina pectoris; I11.9 Hypertensive heart disease without heart failure; E78.5 Hyperlipidemia, unspecified; Z79.1 Long term (current) use of non-steroidal anti-inflammatories (NSAID); Z79.899 Other long term (current) drug therapy; Z88.8 Allergy status to other drugs, medicaments and biological substances; Z82.49 Family history of ischemic heart disease and other diseases of the circulatory system
CPT/HCPCS: 36415; 74176; 74420; 76775; 80048; 80053; 81003; 81015; 82365; 83605; 83690; 85025; 85610; 86140; 87086; 88300; 93005; A9270-GY; C1876; G0378; J0696; J1100; J1580; J1644; J1885; J2405; J2704; J3010

== ENCOUNTER 2017-05-14 14:13 | Day surgery (SDC) | payer MEDICARE, BC ==
[~2017-05-14 14:13] MED LIST: Buffered Lidocaine 0.9% SYRIN* 5 ML/SYR SYRINGE INTRADERM ONE
[2017-05-14] MEDS ORDERED: ceFAZolin 2 GM PREMIX(*) 2 GM/50 ML BAG IVPB ONE (15:43)
[2017-05-14] MEDS ORDERED: Bupivacaine 0.25% EPI 200,000* 30 ML SDV ONE (16:16)
[2017-05-14] MEDS ORDERED: Bupivacaine 0.25% SDV* 30 ML ONE (16:16)
[2017-05-14] MEDS ORDERED: Lidocaine 1.5% EPI 1:200,000* 30 ML SDV ONE (16:17)
[2017-05-14] MEDS ORDERED: Midazolam* 1 MG/ML 5 ML VIAL (5 MG) ONE (16:58)
[2017-05-14] MEDS ORDERED: fentaNYL* 50 MCG/ML 2 ML VIAL (100 MCG VIAL) ONE (17:11)
[2017-05-14] MEDS ORDERED: HYDROcodone/ACETAMIN 5-325 MG* 1 TAB PO PRN (17:36)
[2017-05-14] MEDS ORDERED: Ondansetron INJ* 2 MG/ML VIAL IV PRN (17:36)
[2017-05-14] MEDS ORDERED: DiMENhydriNATE IV* 50 MG/ML VIAL IV PUSH PRN (17:36)
[2017-05-14] MEDS ORDERED: oxyCODONE TAB* 5 MG TAB PO PRN (17:36)
[2017-05-14] MEDS ORDERED: fentaNYL* 50 MCG/ML 2 ML VIAL (100 MCG VIAL) IV PRN (17:36)
[2017-05-14 18:24] VITALS: BP 145/73
== END 2017-05-14 18:42 | disposition home or self-care (01) ==
LOC: OREAST 14:13
PROVIDERS: ATTEND Plastic Surgery
DX: C43.61 Malignant melanoma of right upper limb, including shoulder (principal); I48.0 Paroxysmal atrial fibrillation; I10 Essential (primary) hypertension; E78.5 Hyperlipidemia, unspecified
CPT/HCPCS: 88305; J0690; J2250; J3010

== ENCOUNTER 2017-09-09 13:54 | Emergency (ER) | payer MEDICARE, BC ==
[2017-09-09 14:02] VITALS: BP 207/66
--- NOTE | 2017-09-09 14:10 | UC ---
Laceration HPI - HPI Summary HPI Summary: Pt presents with laceration to right thumb. She tells me that earlier this afternoon she was going down steps on [facility] and missed a step - put her hands out and caught herself, but sustained a 2.0cm laceration to her right thumb. Her friend wrapped the thumb in a gauze bandage and pt came to . She does not know when her last tetanus shot was, but refuses to have one updated today. She did not hit her head or injure any other area of her body. - History Of Current Complaint Chief Complaint: UCLaceration Stated Complaint: CUT ON THUMB Time Seen by Provider: 09/09/17 14:10 Hx Obtained From: Patient Laceration Location: Finger Onset/Duration: Sudden Onset Severity: Mild Pain Intensity: 2 Pain Scale Used: 0-10 Numeric Aggravating Factors: Movement - Allergies/Home Medications Allergies/Adverse Reactions: Allergies Allergy/AdvReac Type Severity Reaction Status Date / Time Clopidogrel [From Plavix] Allergy Intermediate Hives Verified 09/09/17 13:59 Atorvastatin [From Lipitor] AdvReac Mild Abdominal Verified 09/09/17 13:59 Pain Home Medications: Home Medications Rosuvastatin (NF) [Crestor (NF)] 1 tab PO 09/09/17 [History] Spironolactone TAB* [Aldactone TAB 25 MG*] 12.5 mg PO DAILY 09/09/17 [History Confirmed 09/09/17] PMH/Surg Hx/FS Hx/Imm Hx Cardiovascular History: Cardiac Disease, Hypertension, Atrial Fibrillation - Surgical History Surgical History: Yes Surgery Procedure, Year, and Place: HYSTERECTOMY 1995 [facility] [place]. 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 melanoma 2015. BILAT CATARACT [facility] [place]. CARDIAC CATH and stent 08/2015. 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 - Family History Known Family History: Positive: None Negative: Cardiac Disease, Hypertension, Diabetes Family History: R & n/C - Social History Alcohol Use: Occasionally Alcohol Amount: 1 glass of wine a week Substance Use Type: None Smoking Status (MU): Never Smoked Tobacco - Immunization History Most Recent Influenza Vaccination: 2016/2017 season Most Recent Tetanus Shot: Unknown Most Recent Pneumonia Vaccination: unsure Review of Systems Constitutional: Negative Skin: Other - right thumb laceration Respiratory: Negative Cardiovascular: Negative All Other Systems Reviewed And Are Negative: Yes Physical Exam Triage Information Reviewed: Yes Appearance: Well-Appearing, Well-Nourished Vital Signs: Initial Vital Signs Temp 98.1 F 09/09/17 13:56 Pulse 81 09/09/17 13:56 Resp 18 09/09/17 13:56 BP 207/66 09/09/17 13:56 Pulse Ox 98 09/09/17 13:56 Vital Signs Reviewed: Yes Musculoskeletal: Positive: Strength Intact - Right hand and all digits, ROM Intact - Right hand and all digits, No Edema Neurological: Positive: Alert, Muscle Tone Normal, Other: - Sensations intact right hand and all digits Psychological: Positive: Age Appropriate Behavior Skin: Positive: Other - 2.0cm superficial laceration to right thumb following the flexor crease. Appears to be no tendon involvement. Laceration Repair - Laceration Repair 1 Description: Linear Laceration Size After Repair: Length (cm) - 2.0cm Modified For Repair: No Type Injection: Local Anesthesia Used: 2.0% Lido Cleansing Completed Via Routine Prep: Yes Closure Material: Sutures - 9 in total Suture Of: Skin Suture Type: Nylon - 5-0 Laceration Course/Dx - Course/Dx Course Of Treatment: A time out was performed, witnessed, and signed. The area was irrigated with 20mL sterile saline. 3mL of 2% lidocaine without epi was administered and good anesthetization was achieved. An Iodine swab was used to cleanse the area. In the usual sterile fashion, nine 5-0 nylon sutures were placed. The wound was bandaged with triple antibiotic ointment and gauze. Pt tolerated procedure well. Recheck BP was 165/76 manual - Differential Dx - Laceration/Wound Differental Diagnoses: Laceration Provider Diagnoses: 2.0cm laceration right thumb Discharge - Discharge Plan Condition: Stable Disposition: HOME Patient Education Materials: Finger Laceration (ED) Referrals: Onesimo Ramírez MD [Primary Care Provider] - Additional Instructions: 1) Keep bandage on for 24 hours and do not get wet. After that may apply band- aid and keep covered for 3 days. 2) Ice the area to decrease swelling/pain 3) Do not get the area wet Your blood pressure was high at todays visit. Please see your primary provider within 4 weeks for recheck and re-evaluation. Monitor the area for any discharge, increased redness, increased pain or swelling. - If you develop any of these, please call your PCP or go to the ED. If you develop a fever, SOB, chest pain, new or worsening symptoms - please call your PCP or go to the ED. Return in 10-12 days for suture removal
[2017-09-09] MEDS ORDERED: Lidocaine 2% PF * 5 ML VIAL INJ ONE (14:14)
== END 2017-09-09 15:44 | disposition home or self-care (01) ==
LOC: UCEAST 13:54
DX: S61.011A Laceration without foreign body of right thumb without damage to nail, initial encounter (principal); W10.9XXA Fall (on) (from) unspecified stairs and steps, initial encounter; Y93.89 Activity, other specified; Y92.214 College as the place of occurrence of the external cause; Y99.9 Unspecified external cause status; Z88.8 Allergy status to other drugs, medicaments and biological substances
CPT/HCPCS: 12001; 99212; G0463

== ENCOUNTER 2018-10-21 06:30 | Day surgery (SDC) | payer MEDICARE, BC ==
[~2018-10-21 06:30] MED LIST changes: +Lactated Ringers 1000 ML Bag* 1,000 ML IV SCH
[2018-10-21] MEDS ORDERED: Bupivacaine 0.25% SDV PF* 10 ML VIAL INJ ONE (07:24)
[2018-10-21] MEDS ORDERED: Lidocaine 2% PF * 5 ML VIAL ONE (07:55)
[2018-10-21] MEDS ORDERED: Ketorolac INJ* 30 MG/ML 1 ML VIAL ONE (07:55)
[2018-10-21] MEDS ORDERED: Propofol* 10 MG/ML 20 ML BTL ONE (07:55)
[2018-10-21] MEDS ORDERED: fentaNYL* 50 MCG/ML 2 ML VIAL (100 MCG VIAL) ONE (07:56)
[2018-10-21] MEDS ORDERED: Acetaminophen TAB* 325 MG PO PRN (08:16)
[2018-10-21] MEDS ORDERED: Ondansetron INJ* 2 MG/ML VIAL IV PRN (08:16)
[2018-10-21] MEDS ORDERED: HYDROcodone/ACETAMIN 5-325 MG* 1 TAB PO PRN (08:16)
[2018-10-21] MEDS ORDERED: Naloxone* 0.4 MG/ML 1 ML VIAL IV PRN (08:16)
[2018-10-21 08:35] VITALS: BP 134/41
--- NOTE | 2018-10-21 17:56 | OP ---
DATE OF OPERATION: 10/21/18 [facility] DATE OF : [birth year] SURGEON: Gregory Morton MD DRY HOUSE WORKER: None. ANESTHESIOLOGIST: Dr. Guadalupe. ANESTHESIA: Local MAC. PRE-OP DIAGNOSIS: Right carpal tunnel syndrome. POST-OP DIAGNOSIS: Right carpal tunnel syndrome. OPERATIVE PROCEDURE: Right open carpal tunnel release. INDICATIONS: Marry has pretty severe carpal tunnel, it has been symptomatically quite severe. We talked about risks and benefits and she wanted to proceed with surgery. ESTIMATED BLOOD LOSS: 2 mL. COMPLICATIONS: None. FINDINGS: See above and below. DESCRIPTION OF PROCEDURE: Marry was seen in the preoperative holding area. The correct side, site, and procedure were identified. We came back to the operating room. We had a time-out and then I infiltrated the operative area with 0.25% plain Marcaine. The arm was then prepped and draped in the usual fashion and a time-out was performed. The arm was exsanguinated with the Esmarch and the tourniquet was inflated to 250 mmHg. I then made a longitudinal 2 to 3 cm incision in the typical location for an open carpal tunnel release. Dissection was carried down through the subcutaneous tissue and palmar fascia. The transverse carpal ligament was then released just off of the radial aspect of the hook of the hamate. The release was completed distally and then proximally, I released the subcutaneous tissue and palmar fascia and I released the remainder of the transverse carpal ligament and distal antebrachial fascia to a level of several centimeters proximal to the wrist flexion crease. Once I had confirmed the release distally and proximally, I irrigated out the wound and the skin was closed with 4-0 nylon suture. Soft dressings were applied and she was taken to the recovery room in stable condition. [id number]/[facility] #: [id number] [facility]
== END 2018-10-21 09:04 | disposition home or self-care (01) ==
LOC: OREAST 06:30
PROVIDERS: ATTEND Orthopaedic Surgery Hand Surgery
DX: G56.01 Carpal tunnel syndrome, right upper limb (principal); I10 Essential (primary) hypertension; I48.91 Unspecified atrial fibrillation; Z85.820 Personal history of malignant melanoma of skin; E78.2 Mixed hyperlipidemia; I25.10 Atherosclerotic heart disease of native coronary artery without angina pectoris; Z95.5 Presence of coronary angioplasty implant and graft; G89.29 Other chronic pain; Z79.891 Long term (current) use of opiate analgesic
CPT/HCPCS: J1885; J2704; J3010; J3490

== ENCOUNTER 2018-11-11 07:50 | Day surgery (SDC) | payer MEDICARE, BC ==
[~2018-11-11 07:50] MED LIST changes: -Buffered Lidocaine 0.9% SYRIN* 5 ML/SYR SYRINGE INTRADERM ONE; +Buffered Lidocaine 1% SYRIN* 1 ML/SYRINGE INTRADERM ONE
[2018-11-11] MEDS ORDERED: Betamethasone INJ* 6 MG/ML 5 ML VIAL (30 MG) ONE (09:52)
[2018-11-11] MEDS ORDERED: Bupivacaine 0.25% SDV PF* 10 ML VIAL INJ ONE (09:53)
[2018-11-11] MEDS ORDERED: Bupivacaine 0.5%* 50 ML VIAL ONE (09:53)
[2018-11-11] MEDS ORDERED: Lidocaine 1% INJ* 10 MG/ML 30 ML SDV ONE (09:53)
[2018-11-11] MEDS ORDERED: Naloxone* 0.4 MG/ML 1 ML VIAL IV PRN (09:54)
[2018-11-11] MEDS ORDERED: Lidocaine 2% PF * 5 ML VIAL ONE (10:00)
[2018-11-11] MEDS ORDERED: Propofol* 10 MG/ML 20 ML BTL ONE (10:00)
[2018-11-11] MEDS ORDERED: fentaNYL* 50 MCG/ML 2 ML VIAL (100 MCG VIAL) ONE (10:00)
[2018-11-11 11:02] VITALS: BP 140/46
--- NOTE | 2018-11-11 11:35 | OP ---
DATE OF OPERATION: 11/11/2018 [facility] DATE OF : 1930. SURGEON: Dr. Gregory Morton. CASKET UPHOLSTERER: TASHA Moreno. ANESTHESIOLOGIST: Dr. Jefry Palma. ANESTHESIA: Local MAC. PRE-OP DIAGNOSIS: 1. Left carpal tunnel syndrome. 2. Right middle trigger finger. POST-OP DIAGNOSIS: 1. Left carpal tunnel syndrome. 2. Right middle trigger finger. OPERATIVE PROCEDURE: 1. Left carpal tunnel release. 2. Right middle trigger finger steroid injection. INDICATIONS: Marry has the aforementioned conditions. She has done well with a right carpal tunnel release. We had talked about risks and benefits. She wants to proceed. ESTIMATED BLOOD LOSS: 2 ml. COMPLICATIONS: None. FINDINGS: See above and below. DESCRIPTION OF PROCEDURE: Marry was seen in the preoperative holding area. The correct site and side were identified. We came back to the operating room. The arm was prepped and draped in the usual fashion and a time-out was performed. Prior to prepping and draping, I had injected the Bupivacaine in the operative area for the left carpal tunnel release. I had also gone over to the right side and we a time out and I injected 1 ml of 1% Lidocaine and 6 mg of Betamethasone into the area around the tendon sheath of the right middle finger A1 otis. A band-aid was applied. The left arm was exsanguinated with the Esmarch and the tourniquet was inflated to 250 mmHg. I made a 2 to 3 cm incision in the proximal palm in the typical location for an open carpal tunnel release. Dissection was carried down through the subcutaneous tissue and palmar fascia. The fascia was released distally and proximally. I then released the transverse carpal ligament just off the radial aspect of the hook of the hamate. The release was completed distally and then proximally I retracted the subcutaneous tissue with the Farhat retractor and the remainder of the transverse carpal ligament and distal antebrachial fascia was released with the tenotomy scissors. Once I had confirmed that the decompression was complete, we irrigated out the wound and the skin was closed with 4-0 nylon suture. Soft dressings were applied and she was taken to the recovery room in stable condition. [id number]/[facility] #: [id number] [facility]ITAL[facility]igo
== END 2018-11-11 11:02 | disposition home or self-care (01) ==
LOC: OREAST 07:50
PROVIDERS: ATTEND Orthopaedic Surgery Hand Surgery
DX: G56.02 Carpal tunnel syndrome, left upper limb (principal); M65.331 Trigger finger, right middle finger; I48.0 Paroxysmal atrial fibrillation; Z85.42 Personal history of malignant neoplasm of other parts of uterus; I11.9 Hypertensive heart disease without heart failure; I43 Cardiomyopathy in diseases classified elsewhere; Z85.820 Personal history of malignant melanoma of skin; Z79.01 Long term (current) use of anticoagulants; E78.2 Mixed hyperlipidemia
CPT/HCPCS: J0702; J2704; J3010; J3490